=== PATIENT | male | born 1975 | race Caucasian/White ===

== ENCOUNTER 2019-09-27 20:09 | Emergency (ER) | payer OTHER ==
[2019-09-27] MEDS ORDERED: IPRATROPIUM/ALBUTEROL 0.5-2.5 MG/3 ML AMPUL NEB ONE (20:43)
[2019-09-27] MEDS ORDERED: METHYLPREDNISOLONE INJ 125 MG/2 ML SDV IV ONE (20:43)
[2019-09-27] MEDS ORDERED: MAGNESIUM SULFATE/D5W 1 GM/100 ML RTUPB IV ONE ×3 (20:43→22:47)
--- NOTE | 2019-09-27 20:48 | ER Document Report ---
ED Medical Screen (RME) - General Chief Complaint: Shortness Of Breath Stated Complaint: BREATHING PROBELM Time Seen by Provider: 09/27/19 20:38 Notes: 44-year-old male with COPD who is a smoker and history of Guyon Dean syndrome requiring tracheostomy support presents to the emergency department with acute shortness of breath that started today. Patient is having mild difficulty completing sentences but is otherwise in no acute distress. No fevers or chills, no recent illness. Exam: Mild to moderate reduction in air exchange, inspiratory and expiratory wheezes heard in all guaj[place] I have greeted and performed a rapid initial assessment of this patient. A comprehensive ED assessment and evaluation of the patient, analysis of test results and completion of medical decision making process will be conducted by an additional ED providers. TRAVEL OUTSIDE OF THE [place] IN LAST 30 DAYS: No - Related Data Allergies/Adverse Reactions: oxycodone [From OxyContin] Allergy (Verified 09/27/19 20:34) flu shot Allergy (Uncoded 09/27/19 20:34) Home Medications: Gabapentin 300mg. clonazapam. Loratadine. Propanolol. albuterol Past Medical History - Social History Chew tobacco use (# tins/day): No Frequency of alcohol use: Rare Drug Abuse: None Physical Exam - Vital signs Vitals: Temp Pulse Resp BP Pulse Ox 97.8 F 83 28 H 149/82 H 94 09/27/19 20:14 09/27/19 20:14 09/27/19 20:14 09/27/19 20:14 09/27/19 20:14 Course - Vital Signs Vital signs: Temp Pulse Resp BP Pulse Ox 97.8 F 83 28 H 149/82 H 94 09/27/19 20:14 09/27/19 20:14 09/27/19 20:14 09/27/19 20:14 09/27/19 20:14
[2019-09-27 21:45] LABS: ABSOLUTE BASOPHILS # (AUTO) 0.1 10^3/uL (0.0-0.2); ABSOLUTE EOSINOPHILS # (AUTO) 0.2 10^3/uL (0.0-0.6); ABSOLUTE LYMPHOCYTES (AUTO) 2.1 10^3/uL (0.5-4.7); ABSOLUTE MONOCYTES (AUTO) 0.7 10^3/uL (0.1-1.4); BASOPHILS % (AUTO) 0.9 % (0-2); HEMATOCRIT 48.7 % (37.9-51.0); LYMPHOCYTES % (AUTO) 25.7 % (13-45); MEAN CORPUSCULAR HEMOGLOBIN 30.9 pg (27.0-33.4); MEAN CORPUSCULAR HGB CONC 34.9 g/dL (32.0-36.0); MEAN CORPUSCULAR VOLUME 89 fl (80-97); MONOCYTES % (AUTO) 8.1 % (3-13); PLATELET COUNT 209 10^3/uL (150-450); RED CELL DISTRIBUTION WIDTH 14.4 % (11.5-14.0); SEGMENTED NEUTROPHILS % (AUTO) 62.3 % (42-78); TOTAL CELLS COUNTED % (AUTO) 100 %; WHITE BLOOD COUNT 8.1 10^3/uL (4.0-10.5)
[2019-09-27 22:01] LABS: ALBUMIN 4.5 g/dL (3.5-5.0); ALKALINE PHOSPHATASE 106 U/L (38-126); ANION GAP 12 (5-19); ASPARTATE AMINO TRANSFERASE 25 U/L (17-59); BILIRUBIN,DIRECT 0.3 mg/dL (0.0-0.4); BILIRUBIN,TOTAL 0.4 mg/dL (0.2-1.3); BLOOD UREA NITROGEN 12 mg/dL (7-20); CALCIUM 9.4 mg/dL (8.4-10.2); CARBON DIOXIDE 21 mmol/L (22-30); CHLORIDE 109 mmol/L (98-107); GLUCOSE 126 mg/dL (75-110); POTASSIUM 4.1 mmol/L (3.6-5.0); TOTAL PROTEIN 7.6 g/dL (6.3-8.2)
[2019-09-27] MEDS ORDERED: FENTANYL CITRATE INJ/PF 100 MCG/2 ML AMPUL IV ONE (22:04)
--- NOTE | 2019-09-27 22:07 | ER Document Report ---
ED General - General Chief Complaint: Shortness Of Breath Stated Complaint: BREATHING PROBELM Time Seen by Provider: 09/27/19 20:38 TRAVEL OUTSIDE OF THE [place] IN LAST 30 DAYS: No - Related Data Allergies/Adverse Reactions: oxycodone [From OxyContin] Allergy (Verified 09/27/19 20:34) flu shot Allergy (Uncoded 09/27/19 20:34) Home Medications: Gabapentin 300mg. clonazapam. Loratadine. Propanolol. albuterol Past Medical History - Social History Smoking Status: Current Every Day Smoker Chew tobacco use (# tins/day): No Frequency of alcohol use: Rare Drug Abuse: None Family History: Reviewed & Not Pertinent Patient has suicidal ideation: No Patient has homicidal ideation: No Physical Exam - Vital signs Vitals: Temp Pulse Resp BP Pulse Ox 97.8 F 83 28 H 149/82 H 94 09/27/19 20:14 09/27/19 20:14 09/27/19 20:14 09/27/19 20:14 09/27/19 20:14 - Notes Notes: Patient is emerge department with shortness of breath this been going on all day. He is felt warm but no actual fevers. He has had a nonproductive cough with this. Some URI symptoms no sore throat. He also reports that about 4 hours ago he had acute onset of left-sided chest pain is pleuritic in nature. Worse when he takes a deep breath. History of trauma falls or heavy lifting. There is no recent travel or immobilization. He has a history of repeated but did not use his inhaler Past medical history sniffing for COPD Darien Dean and while on vent and later developed a pneumothorax is not any problem since Social history does smoke but does not drink Allergies he said he has OxyContin in the past it caused flashes but no true allergic reaction he said Tylenol with codeine without difficulty Review of systems pertinent positives and negatives in HPI otherwise all the systems were reviewed and acutely negative PHYSICIAN EXAM -vital signs are noted triage note and note from triage reviewed GENERAL: Well-appearing, well-nourished and in __moderate distress with intermittent episodes of severe pain where he yells out____ HEAD: Atraumatic, normocephalic. EYES: Pupils equal round and reactive to light, extraocular movements intact, sclera anicteric, conjunctiva are normal. ENT: nares patent, oropharynx clear without exudates. Moist mucous membranes. NECK: supple without lymphadenopathy LUNGS: He has decreased breath sounds throughout he is tachypneic. There are a few crackles in the bases and a few scattered wheezes. Is got severe tenderness over the left lateral chest wall in the posterior axillary line that reproduces the pain. The pain appears to be out of proportion to the findings in presenting crepitus rash noted. There is no pain over the anterior chest posterior hemithorax HEART: Regular rate and rhythm without murmurs ABDOMEN: Soft, nontender, normoactive bowel sounds. EXTREMITIES: No deformity, +1 edema to mid calf there is no palpable cords NEUROLOGICAL: No focal neurological deficits. Moves all extremities spontaneously and on command. PSYCH: Normal mood, normal affect. SKIN: Warm, Dry, normal turgor, no rashes or lesions noted. BACK-nontender in the midline Differential diagnosis COPD pneumonia PE pleurisy pneumothorax rib fracture Course - Re-evaluation Re-evalutation: 09/28/19 01:17 ED patient is remained stable he was given 3 DuoNeb treatments steroids and magnesium. Was given a dose of fentanyl with some relief. There was followed by Ativan and morphine significant provement of his symptoms. On repeat exam more comfortably. Still has occasional spasms in the muscles he has a rare wh eeze. O2 sats are good and his rate has improved he had no adverse reactions to the pain medicine Medical decision making patient presents with exacerbation of his asthma. He also appears to be having some muscle spasms of unclear etiology he does report some bad coughing spells at home and is possible he has a pulled muscle. He has no evidence of a PE and presentations not consistent with acute coronary syndrome he is feeling better at this point he can be discharged home At this time there is no indication for admission. I have discussed the findings with patient/family with return precautions and follow-up recommendations. Verbal discharge instructions given at the bedside and opp ortunity for questions given. Medication warnings were given if indicated. Patient is in agreement with this plan and has verbalized understanding of return precautions and the need for primary care follow-up as directed.. 09/28/19 01:19 - Vital Signs Vital signs: Temp Pulse Resp BP Pulse Ox 97.9 F 83 28 H 149/82 H 94 09/28/19 00:29 09/27/19 20:14 09/27/19 20:14 09/27/19 20:14 09/27/19 20:14 - Laboratory Result Diagrams: 09/27/19 21:01 09/27/19 21:01 Laboratory results interpreted by me: 09/27/19 09/27/19 21:01 21:01 RDW 14.4 H Chloride 109 H Carbon Dioxide 21 L Glucose 126 H Critical Care Note - Critical Care Note Total time excluding time spent on procedures (mins): 35 Comments: Patient presents with shortness of breath and wheezing. But also has pleuritic pain came on acutely with paroxysms of pain. There is a moderate to severe distress on arrival. Concerned that that time her pneumothorax PE pneumonia. Says serial exams and multiple medical interventions Discharge - Discharge Clinical Impression: Muscle strain, Pleurisy Asthmatic bronchitis Qualifiers: Asthma severity: moderate Asthma complication type: with acute exacerbation Condition: Stable Disposition: HOME, SELF-CARE Additional Instructions: Pleurisy Your chest pain has been diagnosed as pleuritis (pleurisy). This is an inflammation of the surface of the lung tissue. It can be caused by a virus or, occasionally, old scar tissue. It is painful but, for the most part, not a serious problem. This pain is usually made worse by deep breathing, coughing, or sudden movements of the upper body or arms. The treatment is relief of symptoms. It includes rest, antiinflammatory medication, and pain medicine. Resolution of the pain is usually rapid once antiinflammatory medication is started. Warning signs of a more serious problem include: a fever, shortness of breath, pain that radiates to your jaw, shoulders or arms, or coughing up bloody sputum. If any of these symptoms occur, call the physician at once.Bronchitis with Bronchospasm (Wheezing) You have bronchitis with bronchospasm (wheezing). Sometimes people develop wheezing with a chest cold. This occurs either because of an underlying tendency toward asthma or because the virus itself irritates the bronchial tubes. This irritation causes cough, shortness of breath, and wheezing. Emergency treatment of bronchospasm may include adrenaline shots or bronchodilator aerosol. You may feel lightheaded and have a rapid pulse for an hour or two. Rest and get plenty of fluids. At home, we'll treat you with a bronchodilator inhaler. Corticosteroids may be required for some patients. Until you recover, avoid chemical fumes, dusts, p ollens, and exercising in very cold or dry air. If you smoke, stop now! Most cases of bronchitis get better without antibiotics. We prescribe antibiotics when we believe bacteria are damaging your airways, or if there's high risk the bronchitis will worsen into pneumonia. Increase your fluid intake. A cool mist humidifier may make your lungs more comfortable. An expectorant (cough medicine that loosens phlegm) can help. Repeated episodes of bronchitis and bronchospasm may result in lung damage -- for example, chronic bronchitis, recurrent pneumonias, or emphysema. If you develop a fever, increased wheezing, chest pain, or severe shortness of breath, you should contact the doctor immediately. Please review the discharge instructions, they will tell you about your disease/injury and what you need to return to the ED for Return to the ED if you feel worse or can follow-up with your family doctor Use your inhaler with a spacer-take 2 puffs 4 times a day for the next 5 days then as needed for shortness of breath 1 the pain medications may cause drowsiness. Be careful if you are using crutches. Do not drive or operate machinery. Do not take Tylenol with the pain medication Your blood pressure was elevated today needs to be rechecked again in 1 to 2 weeks to determine if need to be on medication or have your medications adjusted. Untreated hypertension can cause heart attack stroke and kidney failure Follow-up with your family doctor in 2 to 3 days if not better otherwise in 10 days Use the incentive spirometer 4 times a day x5 days Prescriptions: Prednisone [Deltasone 20 mg Tablet] 60 mg PO DAILY #15 tablet Hydrocodone/Acetaminophen [[place] 5-325 mg Tablet] 1 - 2 tab PO ASDIR PRN #10 tablet PRN Reason: Forms: Elevated Blood Pressure
--- NOTE | 2019-09-27 22:14 | RADIOLOGY REPORT (SQ) ---
Chest 2 view on 09/27/2019 9:11 PM CLINICAL INDICATION: Shortness of breath, COPD COMPARISON: None FINDINGS: There is linear atelectasis or scarring in the left lung base. Lungs are otherwise clear. Cardiac, hilar and mediastinal contours are within normal limits. No bony abnormality is noted. IMPRESSION: No acute disease.
[2019-09-27 22:36] LABS: VENOUS BLOOD BASE EXCESS -2.5 mmol/L; VENOUS BLOOD HCO3 22.4 mmol/L (20-32); VENOUS BLOOD PCO2 39.5 mmHg (35-63); VENOUS BLOOD PH 7.37 (7.30-7.42)
[2019-09-28] MEDS ORDERED: LORAZEPAM INJ 2 MG/1 ML VIAL IV ONE (00:05)
[2019-09-28] MEDS ORDERED: MORPHINE SULFATE 10 MG/ML INJ IV PRN ×2 (00:06→00:39)
[2019-09-28] MEDS ORDERED: HYDROCODONE/ACETAMINOPHEN 5-325 MG (6 TAB/ER DISP) PO PRN ×2 (01:27→01:46)
[2019-09-28 02:03] VITALS: BP 128/78
--- NOTE | 2019-09-28 08:30 | EKG REPORT ---
SEVERITY:- ABNORMAL ECG - SINUS TACHYCARDIA DUNG, CONSIDER BIATRIAL ABNORMALITIES NONSPECIFIC INTRAVENTRICULAR CONDUCTION DELAY : Confirmed by: Herbert Jara MD 28-Sep-2019 08:29:45
== END 2019-09-28 02:49 | disposition home or self-care (01) ==
LOC: ER 20:09
DX: J45.901 Unspecified asthma with (acute) exacerbation (principal); T14.8XXA Other injury of unspecified body region, initial encounter; X58.XXXA Exposure to other specified factors, initial encounter; R09.1 Pleurisy; J44.9 Chronic obstructive pulmonary disease, unspecified; R60.0 Localized edema; R05 Cough; F17.200 Nicotine dependence, unspecified, uncomplicated; Z79.899 Other long term (current) drug therapy; Z88.7 Allergy status to serum and vaccine
CPT/HCPCS: 93005; 94640; 99285; 96375; 96365; 96366; 36415; 85025; 80053; 84484; 85379; 82803; 71046; 93010; J3010; J2930; J2270; J2060; J3475; J7620